=== PATIENT | female | born 1965 | race Caucasian/White ===

== ENCOUNTER 2019-04-14 19:18 | Emergency (ER) | payer MEDICAID ==
[~2019-04-14] VITALS: Ht 162.6 cm; Wt 84.8 kg
[2019-04-14 19:29] VITALS: BP_SYST 187
--- NOTE | 2019-04-14 19:29 | NUR ---
Placed in room 3. Placed on groundwater monitoring technician, blood pressure machine and pulse oximeter. Side rails up.
--- NOTE | 2019-04-14 19:32 | NUR ---
Pt BIB family C/O dizziness since noon. Pt reports episodes of dizziness for the past 5 years and has been increasing in frequency. Pt has no prior medical hx but takes Losartan from [place] occasionally when she "feels like her blood pressure is high". Pt denies any nausea, vomiting, chest pain, generalized pain, shortness of breath, or any other symptoms at this time. BP is elevated 181/99 on assessment. Will continue to monitor.
--- NOTE | 2019-04-14 19:33 | NUR ---
ER at bedside examining patient.
[2019-04-14] MEDS ORDERED: MECLIZINE HCL 25 MG TABLET (ANITVERT) PO ONE (20:00)
--- NOTE | 2019-04-14 20:01 | NUR ---
Patient transported to radiology via gurney, accompanied by rad staff.
[2019-04-14 20:06] LABS: BASOPHILS # (AUTO) 0.1 K/uL (0.0-0.2); EOSINOPHILS # (AUTO) 0.2 K/uL (0.0-0.4); EOSINOPHILS % (AUTO) 2.3 % (0.0-4.0); HEMATOCRIT 38.4 % (36-48); HEMOGLOBIN 13.4 g/dL (12.0-16.0); LYMPHOCYTES # (AUTO) 2.3 K/uL (1.0-5.5); LYMPHOCYTES % (AUTO) 32.7 % (20.5-51.5); MEAN CORPUSCULAR HEMOGLOBIN 33 pg (27-31); MEAN CORPUSCULAR HGB CONC 35 % (32-36); MEAN CORPUSCULAR VOLUME 95 fL (79.0-98.0); MONOCYTES # (AUTO) 0.4 K/uL (0.0-1.0); MONOCYTES % (AUTO) 5.4 % (1.7-9.3); NEUTROPHILS # (AUTO) 4.1 K/uL (1.8-7.7); NEUTROPHILS % (AUTO) 58.6 % (40.0-70.0); PLATELET COUNT (AUTO) 250 K/uL (130-430); RED BLOOD CELL COUNT(AUTO) 4.05 MIL/uL (4.2-6.2); RED CELL DISTRIBUTION WIDTH 12.6 % (9.0-15.0); WHITE BLOOD COUNT (AUTO) 6.9 K/uL (4.8-10.8)
--- NOTE | 2019-04-14 20:10 | NUR ---
Pt returned in stable condition
[2019-04-14 20:22] LABS: CREATININE 0.67 mg/dL (0.55-1.30); POTASSIUM 3.9 mmol/L (3.5-5.1)
[2019-04-14 20:27] LABS: ALBUMIN 3.4 g/dL (3.4-4.8); TOTAL BILIRUBIN 0.3 mg/dL (0.0-1.0)
[2019-04-14 21:11] LABS: ERYTHROCYTE SEDIMENTATION RATE 6 MM/HR (0-20)
--- NOTE | 2019-04-14 21:45 | NUR ---
Pt is resting in bed, does not report able dizziness at this time after Antivert. Dr. Doshi at bedside re-examining pt.
[2019-04-14 22:14] VITALS: BP_SYST 160
--- NOTE | 2019-04-14 22:15 | NUR ---
Patient given written and verbal discharge instructions and verbalizes understanding. ER MD discussed with patient the results and treatment provided. Patient in stable condition. ID arm band removed. Rx of Meclizine given. Patient educated on pain management and to follow up with PMD. Pain Scale 0/10. Opportunity for questions provided and answered. Medication side effect fact sheet provided.
== END 2019-04-14 22:14 | disposition home or self-care (01) ==
LOC: SED 19:18
DX: R42 Dizziness and giddiness (principal); I10 Essential (primary) hypertension; Z88.0 Allergy status to penicillin
CPT/HCPCS: 36415; 70450; 80053; 85025; 85651; 93005; 99284; J8597